=== PATIENT | female | born 1960 | race Asian ===

== ENCOUNTER 2022-07-13 15:27 | Emergency (ER) | payer OTHER, SELFPAY ==
[2022-07-13 15:37] VITALS: BP 129/63; PULSE 61; RESP 16; TEMP 36.6; O2SAT 97; BMI 21.0
--- NOTE | 2022-07-13 19:18 | DI.CT.S_ITS ---
PROCEDURE: CT HEAD/BRAIN WO CON INDICATIONS: RIVERA/Nausea/Vomiting/Dizziness TECHNIQUE: Noncontrast 4.5 mm thick angled axial sections acquired from the foramen magnum to the vertex, with coronal and sagittal reformats. For radiation dose reduction, the following was used: automated exposure control, adjustment of mA and/or kV according to patient size. COMPARISON: None. FINDINGS: Image quality: Excellent. CSF spaces: Basal cisterns are patent. No extra-axial fluid collections. Ventricles are normal in size and shape. Brain: No midline shift. No intracranial masses or hemorrhage. Mcdonnell-white matter interface is normal. Skull and face: Calvarium and visualized facial bones are intact, without suspicious lesions. Sinuses: Bilateral maxillary sinus mucosal thickening. The mastoids are clear. IMPRESSION: 1. No acute intracranial abnormalities. 2. Bilateral maxillary sinus disease. Dictated by: Seble Reyes M.D. on 07/13/2022 at 19:59 Approved by: Seble Reyes M.D. on 07/13/2022 at 20:00
[2022-07-13 20:00] LABS: Add Manual Diff / Slide Review NO; Basophils Absolute Auto 0 /uL (0-100); Basophils Percent Auto 0.5 % (0-2); Eosinophils Absolute Auto 100 /uL (0-450); Hematocrit 39.3 % (36-46); Hemoglobin 13.4 g/dL (12.0-16.0); Lymphocytes Absolute Auto 2100 /uL (1100-4500); Lymphocytes Percent Auto 28.8 % (25-40); Mean Corpuscular Hemoglobin 29.5 PG (26-34); Mean Corpuscular Volume 86.6 fL (80-100); Monocytes Absolute Auto 700 /uL (0-900); Monocytes Percent Auto 9.1 % (3-14); Neutrophils Absolute Auto 4500 /uL (1500-7000); Neutrophils Percent Auto 60.6 % (50-75); Platelet Count 438 X10^3/uL (150-400); Red Blood Cell Count 4.54 X10^6/uL (4.0-5.2); Red Cell Distribution Width 13.9 % (11.6-14.8); White Blood Cell Count 7.5 X10^3/uL (4.5-11.0)
[2022-07-13 20:04] LABS: Alanine Aminotransferase 40 IU/L (<35); Albumin 4.7 g/dL (3.5-5.0); Albumin Globulin Ratio 1.3 (1.0-2.8); Alkaline Phosphatase 74 U/L (38-126); Aspartate Aminotransferase 36 IU/L (14-36); Bilirubin Total 0.5 mg/dL (0.2-1.3); Blood Urea Nitrogen 8 mg/dL (7-17); Calcium 9.6 mg/dL (8.4-10.2); Carbon Dioxide 28 mmol/L (22-32); Chloride 102 mmol/L (98-107); Estimated Glomerular Filt Rate > 60 mL/min (>60); Globulin 3.5 g/dL (1.7-4.1); Glucose 102 mg/dL (80-110); HEMOLYSIS < 15 (0-50); Lipase 99 U/L (23-300); Potassium 4.1 mmol/L (3.4-5.1); Sodium 137 mmol/L (137-145); Total Protein 8.2 g/dL (6.3-8.2)
--- NOTE | 2022-07-13 20:31 | ED.HA ---
HPI - Headache General Chief Complaint: Headache Stated Complaint: rt Jaw pain, nausea, dizzy Time Seen by Provider: 07/13/22 19:59 Source: patient and family Mode of arrival: Ambulatory Limitations: no limitations History of Present Illness HPI Narrative: Patient is a 61-year-old female who is here for evaluation of several days pain in the right side of her head. She states it is in front of her right ear. She initially thought that maybe was a toothache but she does not have any specific tooth discomfort. She did recently just get over a ?cold? that she describes symptoms similar to a upper respiratory infection. She is not have any chest pain or shortness of breath. She is somewhat feeling lightheaded. No problems swallowing. No skin changes over the area. Related Data Home Medications Medication Instructions Recorded Confirmed levothyroxine 25 mcg tablet 25 mcg PO QDAY ##0 01/22/16 (Synthroid) Previous Rx's Medication Instructions Recorded pantoprazole 20 mg tablet,delayed 20 mg PO BID #60 tabs 01/22/16 release (Protonix) sucralfate 100 mg/mL oral 1 gm PO ACHS #30 doses 01/22/16 suspension (Carafate) penicillin V potassium 500 mg 500 mg PO QID 7 days #28 tabs 07/13/22 tablet Allergies Allergy/AdvReac Type Severity Reaction Status Date / Time No Known Drug Allergies Allergy Verified 07/13/22 15:37 Review of Systems Constitutional Constitutional: Reports system reviewed and no additional complaints, except as documented ENT Ears, Nose, Mouth, and Throat: Reports system reviewed and no additional complaints, except as documented Cardiovascular Cardiovascular: Reports system reviewed and no additional complaints, except as documented Respiratory Respiratory: Reports system reviewed and no additional complaints, except as documented Gastrointestinal Gastrointestinal: Reports system reviewed and no additional complaints, except as documented Integumentary/Breasts Skin/Breast: Reports system reviewed and no additional complaints, except as documented Neurologic Neurologic: Reports system reviewed and no additional complaints, except as documented Hematologic/Lymphatic On Anticoagulants: No Patient History Social History Smoking Status: Current every day smoker Smoking Status: Current every day smoker Substance Use Type: does not use Exam Initial Vital Signs Initial Vital Signs: Vital Signs Temperature 98 F 07/13/22 15:37 Pulse Rate 61 04/25/23 15:37 Respiratory Rate 16 07/13/22 15:37 Blood Pressure 129/63 07/13/22 15:37 Pulse Oximetry 97 07/13/22 15:37 Oxygen Delivery Method Room Air 07/13/22 15:37 Const General: cooperative, comfortable and No ill appearing HENMT Head: normal to inspection and normocephalic Ears: hearing grossly normal bilaterally, external ears normal, TM's normal bilaterally, EAC's normal, mastoids normal and no periauricular adenopathy Face and sinus: normal facial exam Mouth: moist mucous membranes Teeth and gingiva: fair dentition Throat: posterior oropharynx normal HENMT Other: No temporal artery tenderness on the right Neck Lymphatic: No lymphadenopathy Resp Effort & Inspection: normal respiratory effort Auscultation: clear to auscultation bilaterally Cardio Rate: regular rate Skin General: no rashes or lesions noted Neuro General: patient alert, patient awake and moves all extremities Extrem General: normal to inspection and capillary refill normal Psych Appearance: grossly normal and well kempt Course Orders Ordered: ED Orders 07/13/22 19:18 CT head/brain wo con Stat 07/13/22 19:40 Complete Blood Count AUTO DIFF Stat Comprehensive Metabolic Panel Stat Lipase Stat Discontinued Medications Ondansetron HCl (Ondansetron 4 Mg/2 Ml Inj) 4 mg IV NOW PRN PRN Reason: Nausea And Vomiting Vital Signs Vital signs: Vital Signs - 8 hr 07/13/22 20:38 Pulse Rate 78 Respiratory Rate 18 Blood Pressure 122/78 Pulse Oximetry 99 Oxygen Delivery Method Room Air MDM - Headache Lab Data Attestation: I reviewed the patient's lab results. 07/13/22 19:40 07/13/22 19:40 Labs: Lab Results 07/13/22 07/13/22 Range/Units 19:40 19:40 WBC 7.5 (4.5-11.0) X10^3/uL RBC 4.54 (4.0-5.2) X10^6/uL Hgb 13.4 (12.0-16.0) g/dL Hct 39.3 (36-46) % MCV 86.6 (80-100) fL MCH 29.5 (26-34) PG MCHC 34.0 (30-36) % RDW 13.9 (11.6-14.8) % Plt Count 438 H (150-400) X10^3/uL Neut % (Auto) 60.6 (50-75) % Lymph % (Auto) 28.8 (25-40) % Mcmullen % (Auto) 9.1 (3-14) % Eos % (Auto) 1.0 L (2-4) % Baso % (Auto) 0.5 (0-2) % Neut # (Auto) 4500 (5978-6254) /uL Lymph # (Auto) 2100 (6704-6374) /uL Mcmullen # (Auto) 700 (0-900) /uL Eos # (Auto) 100 (0-450) /uL Baso # (Auto) 0 (0-100) /uL Sodium 137 (137-145) mmol/L Potassium 4.1 (3.4-5.1) mmol/L Chloride 102 (98-107) mmol/L Carbon Dioxide 28 (22-32) mmol/L BUN 8 (7-17) mg/dL Creatinine 0.47 L (0.52-1.04) mg/dL Estimated GFR > 60 (>60) mL/min BUN/Creatinine Ratio 17.0 (6-22) Glucose 102 (80-110) mg/dL Calcium 9.6 (8.4-10.2) mg/dL Total Bilirubin 0.5 (0.2-1.3) mg/dL AST 36 (14-36) IU/L ALT 40 H (<35) IU/L Alkaline Phosphatase 74 (38-126) U/L Total Protein 8.2 (6.3-8.2) g/dL Albumin 4.7 (3.5-5.0) g/dL Globulin 3.5 (1.7-4.1) g/dL Albumin/Globulin Ratio 1.3 (1.0-2.8) Lipase 99 (23-300) U/L Imaging Data CT scan - head: Radiologist's Impression: PROCEDURE:? CT HEAD/BRAIN WO CON ? INDICATIONS:? RIVERA/Nausea/Vomiting/Dizziness ? TECHNIQUE:? Noncontrast 4.5 mm thick angled axial sections acquired from the foramen magnum to the vertex, with coronal and sagittal reformats.? For radiation dose reduction, the following was used:? automated exposure control, adjustment of mA and/or kV according to patient size.? ? COMPARISON:? None. ? FINDINGS:? Image quality:? Excellent.? ? CSF spaces:? Basal cisterns are patent.? No extra-axial fluid collections.? Ventricles are normal in size and shape.? ? Brain:? No midline shift.? No intracranial masses or hemorrhage.? Mcdonnell-white matter interface is normal.? ? Skull and face:? Calvarium and visualized facial bones are intact, without suspicious lesions.? ? Sinuses:? Bilateral maxillary sinus mucosal thickening.? The mastoids are clear.? ? IMPRESSION:? ? 1. No acute intracranial abnormalities. 2. Bilateral maxillary sinus disease. [facility] Narrative Medical decision making narrative: Head CT is unremarkable. Labs are unremarkable. Her exam is relatively unremarkable failure although she does have fair dentition. There is no signs of any specific dental infection. She is no tenderness over temporal artery. No lymphadenopathy. Her right ear exam is unremarkable. There is no skin changes over the area concerning for cellulitis. She is not tender over her parotid gland. I did discuss this with the patient and her did bedside. The plan will be as to give her a prescription for antibiotics however she was going to hold on filling this next couple days. If her symptoms do not improve she will start taking the antibiotics for concern of a potential dental infection. She should follow-up with her primary dentist as well. We also discussed taking antihistamines given her recent symptoms consistent with upper respiratory. She was given return precautions. She expressed understanding and. Discharge Plan Departure Patient Disposition: Home Clinical Impression: Jaw pain Activity Restrictions/Additional Instructions: I recommend that you continue to take all of your medications as directed. I also recommend that for the next couple days you start taking a antihistamine such as Claritin or Zyrtec. You can purchase these [id number]. The generic versions are appropriate. You were also given a prescription for antibiotics. If her symptoms do not improve over the next couple days with the antihistamines then fill this prescription and start taking it as directed. I also recommend that she follow-up with a dentist. Return to the emergency department for worsening symptoms. Prescriptions: New penicillin V potassium 500 mg tablet 500 mg PO QID 7 Days Qty: 28 0RF No Action levothyroxine [Synthroid] 25 MCG tablet 25 mcg PO QDAY Qty: 0 sucralfate [Carafate] 1 GM/10 ML suspension 1 gm PO ACHS Qty: 30 0RF pantoprazole [Protonix] 20 MG tablet,delayed release (DR/EC) 20 mg PO BID Qty: 60 1RF Referrals: ProviderSaira [Primary Care Provider] - Stand Alone Forms: Patient Portal/API
[2022-07-13 20:38] VITALS: BP 122/78; PULSE 78; RESP 18; O2SAT 99
== END 2022-07-13 20:39 | disposition home or self-care (01) ==
PROVIDERS: Student in an Organized Health Care Education/Training Program; Emergency Provider Emergency Medicine
DX: R68.84 Jaw pain (principal); R42 Dizziness and giddiness; R11.2 Nausea with vomiting, unspecified; R51.9 Headache, unspecified
CPT/HCPCS: 36415; 70450; 80053; 83690; 85025; 99284